=== PATIENT | female | born 1955 | race Caucasian/White ===

== ENCOUNTER 2017-06-24 19:42 | Emergency (ER) | payer OTHER ==
[2017-06-24 19:42] VITALS: BMI 33.0
[2017-06-24] MEDS ORDERED: Sodium Chloride 0.9% 500 ML IV ONE (20:21)
[2017-06-24 20:42] LABS: BASO # 0.1 K/uL (0.0-0.2); BASO % 0.6 % (0.0-2.0); EOS # 0.1 K/uL (0.0-0.7); EOS % 0.9 % (0.0-4.0); HEMATOCRIT 40.1 % (34.0-47.0); LYMPH # 2.7 K/uL (1.0-4.3); LYMPH % 20.5 % (20.0-40.0); MEAN CELL VOLUME 87.8 fL (81.0-99.0); MEAN CORPUSCULAR HEMOGLOBIN 30.3 pg (27.0-31.0); MEAN CORPUSCULAR HGB CONC 34.5 g/dL (33.0-37.0); MEAN PLATELET VOLUME 9.5 fL (7.2-11.7); MONO # 0.7 K/uL (0.0-0.8); MONO % 5.1 % (0.0-10.0); RED CELL DISTRIBUTION WIDTH 13.7 % (11.5-14.5); WHITE BLOOD COUNT 13.1 K/uL (4.8-10.8)
[2017-06-24 20:47] LABS: CHLORIDE 97 mmol/L (98-107); POTASSIUM 3.5 mmol/L (3.6-5.2); SODIUM 138 mmol/L (132-148)
[2017-06-24 20:49] LABS: ALKALINE PHOSPHATASE 240 U/L (38-126); ALT/SGPT 33 U/L (9-52); AST/SGOT 33 U/L (14-36); BILIRUBIN,TOTAL 0.5 mg/dL (0.2-1.3); BLOOD UREA NITROGEN 25 mg/dL (7-17); CARBON DIOXIDE 24 mmol/L (22-30); GFR AFRICAN-AMERICAN > 60; GLUCOSE,RANDOM 86 mg/dL (65-105)
[2017-06-24 20:50] LABS: CALCIUM 9.7 mg/dl (8.6-10.4)
--- NOTE | 2017-06-24 21:08 | C.PDOC ---
History Of Present Illness Patient is a 62 y/o F presenting with vomiting and diarrhea. She reports multiple episodes today. She reports that at one point she felt lightheaded and dizzy but did not have any chest pain or SOB. She reports regular cardiac follow-up and yearly negative stress tests. She reports that her fs was transiently elevated today to 500 but resolved after she took her insulin. Denies abdominal pain Time Seen by Provider: 06/24/17 20:04 Chief Complaint (Nursing): GI Problem Past Medical History Vital Signs: Last Vital Signs Temp Pulse 69 06/24/17 19:59 Resp 16 06/24/17 19:59 BP 156/88 H 06/24/17 19:59 Pulse Ox 99 06/24/17 21:09 - Medical History PMH: Anemia, Arthritis, Depression, Gall Bladder Disease, HTN, Hypercholesterolemia, Peripheral Edema Denies: Chronic Kidney Disease Surgical History: Cholecystectomy, Endoscopy - [facility] Procedures DRAINAGE OF SCALP SKIN, EXTERNAL APPROACH (03/20/16) EXTRACTION OF SCALP SKIN, EXTERNAL APPROACH (03/17/16) TRANSFER SCALP SKIN, EXTERNAL APPROACH (03/20/16) Family History: States: Unknown Family Hx - Social History Hx Alcohol Use: No Hx Substance Use: No - Immunization History Hx Tetanus Toxoid Vaccination: No Hx Influenza Vaccination: No Hx Pneumococcal Vaccination: No ED Course And Treatment - Laboratory Results Result Diagrams: 06/24/17 20:32 06/24/17 20:32 O2 Sat by Pulse Oximetry: 99 Medical Decision Making Medical Decision Making: EKG shows NSR at 67bpm with sinus arrhythmia.unchanged from [facility] on 03/17/16 Disposition - Disposition Disposition: HOME/ ROUTINE Disposition Time: 22:04 Condition: GOOD Additional Instructions: Follow-up with PMD within 2 days. Return immediately with any worsening symptoms. Instructions: Gastroenteritis (ED) Forms: [employer] (German) - Clinical Impression Clinical Impression: Gastroenteritis
[2017-06-24 22:35] VITALS: BP 127/74; PULSE 55; RESP 20; TEMP 97.9; O2SAT 98
--- NOTE | 2017-06-25 09:53 | RAD ---
HISTORY: dizziness COMPARISON: No prior. FINDINGS: LUNGS: Moderate venous congestion with patchy bibasilar airspace opacities and trace left pleural effusion. PLEURA: As above. CARDIOVASCULAR: Cardiomegaly. OSSEOUS STRUCTURES: No significant abnormalities. VISUALIZED UPPER ABDOMEN: Normal. OTHER FINDINGS: None. IMPRESSION: Moderate venous congestion with patchy bibasilar airspace opacities and trace left pleural effusion.
== END 2017-06-24 22:31 | disposition home or self-care (01) ==
LOC: C.ER 19:42
DX: K52.9 Noninfective gastroenteritis and colitis, unspecified (principal)
CPT/HCPCS: 71010; 80053; 82550; 82553; 82948; 83690; 84484; 85025; 99284; J7040